=== PATIENT | female | born 1945 | race Caucasian/White ===

== ENCOUNTER → 2016-12-31 | Outpatient (CLI) | payer OTHER, MEDICARE ==
--- NOTE | 2016-12-31 16:41 | EKG ---
[address] [place] [address] Measurements Intervals [place] Rate: 64 P: 62 CA: 228 QRS: -45 QRSD: 106 T: 79 QT: 441 QTc: 451 Interpretive Statements SINUS RHYTHM WITH PROLONGED CA INTERVAL LEFT ANTERIOR FASCICULAR BLOCK NONSPECIFIC ST & T-WAVE ABNORMALITY BORDERLINE QTC Compared to ECG 12/05/2015 15:10: No significant change Electronically Signed On 12-31-16 17:06:03 MDT by Maulik Torre [email or web address]
--- NOTE | 2017-01-01 09:14 | DI ---
XR CXR 2VW PA/LAT,12/31/2016 2:42 PM: Clinical History: Chest pain Previous Exam: December 05, 2015 Findings: PA and lateral views of the chest are obtained, and demonstrate clear lungs. The cardiomediastinum an d bony thorax are unremarkable. There are stable degenerative changes of the acromioclavicular joints . Impression: No acute cardiopulmonary disease.
== END ==
LOC: MOB RAD 14:48
PROVIDERS: ATTEND Family Medicine
DX: R07.9 Chest pain, unspecified (principal); I44.4 Left anterior fascicular block; Z82.49 Family history of ischemic heart disease and other diseases of the circulatory system
CPT/HCPCS: 71020; 93005; 93010

== ENCOUNTER → 2017-01-01 | Outpatient (CLI) | payer OTHER, MEDICARE ==
[2017-01-01 07:23] LABS: BASOPHILS # (AUTO) 0.06 10*3/UL; BASOPHILS % (AUTO) 0.9 % (0-1); EOSINOPHILS # (AUTO) 0.25 10*3/UL; EOSINOPHILS % (AUTO) 3.9 % (0-8); HEMATOCRIT 44.1 % (37.0-47.0); HEMOGLOBIN 15.1 g/dL (12.0-16.0); LYMPHOCYTES # (AUTO) 2.21 10*3/uL; MEAN CORPUSCULAR HEMOGLOBIN 29.8 PG (27-31); MEAN CORPUSCULAR HGB CONC 34.2 g/dL (33-37); MEAN PLATELET VOLUME 8.9 FL (7.4-12.2); MONOCYTES # (AUTO) 0.47 10*3/UL (0.3-0.8); MONOCYTES % (AUTO) 7.3 % (5-15); NEUTROPHILS # (AUTO) 3.47 10*3/UL; NEUTROPHILS % (AUTO) 53.5 % (50-80); RED BLOOD COUNT 5.07 10^6/uL (4.20-5.40)
[2017-01-01 07:31] LABS: PLATELET MORPHOLOGY COMMENT NORMAL MORPHOLOGY (NORM); RBC MORPHOLOGY COMMENT NORMAL MORPHOLOGY (NORM); WBC MORPHOLOGY COMMENT NORMAL MORPHOLOGY (NORM)
[2017-01-01 07:32] LABS: HEMOGLOBIN A1C 5.85 % (4.2-6.0)
[2017-01-01 07:34] LABS: CALCIUM 9.4 mg/dL (8.7-10.7); CHOL/HDL RATIO 2.64 RATIO (0-4.0); LDL CHOLESTEROL,CALCULATED 93.2 mg/dL; SERUM ALBUMIN 4.2 g/dL (3.5-4.8)
== END ==
LOC: LAB 07:07
PROVIDERS: ATTEND Family Medicine
DX: R07.9 Chest pain, unspecified (principal); E87.6 Hypokalemia; I10 Essential (primary) hypertension; R51 Headache; E55.9 Vitamin D deficiency, unspecified
CPT/HCPCS: 36415; 80053; 80061; 82306; 83036; 84443; 84484; 85025

== ENCOUNTER → 2017-01-27 | Outpatient (CLI) | payer OTHER, MEDICARE ==
[2017-01-27 07:41] LABS: BUN/CREATININE RATIO 18.33 (6-20); CALCIUM 9.2 mg/dL (8.7-10.7)
== END ==
LOC: LAB 07:04
PROVIDERS: ATTEND Family Medicine
DX: E87.6 Hypokalemia (principal)
CPT/HCPCS: 36415; 80048

== ENCOUNTER → 2017-04-09 | Outpatient (CLI) | payer OTHER, MEDICARE ==
[2017-04-09 15:50] LABS: BUN/CREATININE RATIO 17.5 (6-20); CALCIUM 9.1 mg/dL (8.7-10.7)
== END ==
LOC: MOB LAB 14:28
PROVIDERS: ATTEND Nurse Practitioner Family
DX: E87.6 Hypokalemia (principal); I10 Essential (primary) hypertension; E55.9 Vitamin D deficiency, unspecified; F32.9 Major depressive disorder, single episode, unspecified
CPT/HCPCS: 36415; 80048; G0439